=== PATIENT | male | born 1985 | race African-American/Black ===

== ENCOUNTER 2019-06-16 02:24 | Emergency (ER) | payer OTHER ==
[~2019-06-16] VITALS: Ht 180.3 cm; Wt 87.5 kg
[2019-06-16] MEDS ORDERED: IBUPROFEN25 GM PO (02:30)
[2019-06-16] MEDS ORDERED: ULTRAM 50MG TAB50 MG PO (03:00)
[2019-06-16] MEDS ORDERED: PENICILLIN V P500 MG PO (03:00)
[2019-06-16 03:10] VITALS: BP 147/92
== END 2019-06-16 03:25 | disposition home or self-care (01) ==
LOC: ER 02:24
DX: K04.7 Periapical abscess without sinus (principal)